=== PATIENT | female | born 1995 | race African-American/Black ===

== ENCOUNTER 2021-06-10 09:56 | Day surgery (SDC) | payer OTHER ==
[~2021-06-10] VITALS: Ht 165.1 cm; Wt 74.5 kg
[~2021-06-10 09:56] MED LIST: BUPIVACAINE-EPI 0.5% 30 ML VIAL KIT. ONE; HYDROmorphone 2 MG/ML VIAL IVP PRN; IV RINGERS,LACTATED 1000ML 1,000 ML IV SCH; PROCHLORPERAZINE 10 MG/2 ML VIAL. IVP PRN; ceFAZolin SODIUM IV Push 1 GM VIAL. IVP PRN; fentaNYL PF VIAL 100 MCG/2 ML VIAL IVP PRN
[2021-06-10 10:32] VITALS: BP 119/66
[2021-06-10] MEDS ORDERED: PROPOFOL 10 MG/ML (20ML) VIAL. IV ONE ×2 (10:45→10:48)
[2021-06-10] MEDS ORDERED: KETOROLAC 30 MG/ML VIAL. ONE (10:46)
[2021-06-10] MEDS ORDERED: LIDOCAINE 2% PF 5 ML VIAL. ONE (10:46)
[2021-06-10] MEDS ORDERED: ROCURONIUM 50 MG/5 ML VIAL. ONE (10:46)
[2021-06-10] MEDS ORDERED: NEOSTIGMINE 10 MG/10 ML VIAL. ONE (10:47)
[2021-06-10] MEDS ORDERED: GLYCOPYRROLATE 1 MG/5 ML VIAL. ONE (10:47)
[2021-06-10] MEDS ORDERED: DEXAMETHASONE SOD PHOS 4 MG/ML VIAL ONE (10:48)
[2021-06-10] MEDS ORDERED: HYDROmorphone 2 MG/ML VIAL ONE (10:48)
[2021-06-10] MEDS ORDERED: MIDAZOLAM HCL/PF 2 MG/2 ML VIAL. ONE (10:54)
[2021-06-10] MEDS ORDERED: BUPIVACAINE-EPI 0.5% 30 ML VIAL KIT. INJ ONE (12:34)
--- NOTE | 2021-06-10 13:37 | PDOC4 ---
Operative Note Operative Note Operative Note: Preoperative Diagnosis: Right inguinal hernia Postoperative Diagnosis: Same Procedure: Right inguinal hernia repair with mesh Surgeon: Eric Tannery Worker: John Rubin MS 4 Anesthesia: General EBL: 10 mL Specimen: None Drains: None Complications: None Indication: The patient is a 25-year-old male who is referred with a right inguinal hernia. He was offered surgical repair. The risks of surgery were discussed which include bleeding, infection, recurrence, pain, anesthetic risk, potential need for additional surgery procedure. He understands and would like to proceed. Description: The patient was taken the operating room and placed supine on the operating table. General anesthesia was performed. The abdomen was prepped with ChloraPrep and draped with sterile towels sheets and an Ioban. An incision was made in the right groin with a scalpel. Cautery dissection was carried down to the external beak aponeurosis. The aponeurosis was opened down to the external ring. The contents of the inguinal canal were digitally mobilized and encircled with a Clemson drain. The inguinal floor appeared relatively intact. There was a small indirect hernia sac present. This was mobilized from the surrounding cord structures which were preserved. The sac was amputated and oversewn with 2-0 Vicryl. The stump was inverted and the defect filled with a medium sized Phasix mesh plug. The plug was sutured in position with 2-0 Vicryl. The inguinal floor was then reinforced with a Prolene keyhole mesh patch. The mesh was sutured with 2-0 Vicryl. The external oblique was closed over the mesh with 2-0 Vicryl. The subcutaneous tissue was approximated 3-0 Vicryl. Skin was closed with 4-0 Monocryl and infiltrated with half percent Marcaine with epinephrine. Steri-Strips and a sterile dressing were applied. The patient tolerated the procedure well and was sent to the recovery room in stable condition. At the end the case all counts were correct. STALIN HERNANDEZ MD Jun 10, 2021 13:37
[2021-06-10] MEDS ORDERED: OXYC-325 PO (13:38)
--- NOTE | 2021-06-10 13:40 | DISCH ---
DISCHARGE INSTRUCTIONS Condition on Discharge Condition on Discharge: Stable Activity After Discharge Activity Instructions for Disc: Other, see below (no lifting over 20 lbs X 4 weeks) Driving Instructions after Dis: Other, see below (no driving while taking pain meds) Wound Incision Care Wound/Incision Care: Other, see below (keep dressing clean and dry X 72 hours, may then remove and shower) Follow-Up Follow up with: Dr Hernandez in 2 weeks in office, call for appointment [phone] STALIN HERNANDEZ MD Jun 10, 2021 13:40
[2021-06-10] MEDS ORDERED: MORPHINE SULFATE 2 MG/ML INJ. ONE (13:50)
[2021-06-10] MEDS: MORPHINE SULFATE 2 MG/ML INJ. IVP PRN ×2 (13:53→14:11)
[2021-06-10] MEDS ORDERED: fentaNYL PF VIAL 100 MCG/2 ML VIAL ONE ×2 (14:09→14:34)
[2021-06-10] MEDS: fentaNYL PF VIAL 100 MCG/2 ML VIAL IVP PRN ×4 (14:12→14:35)
[2021-06-10] MEDS ORDERED: oxyCODONE/APAP 5/325 1 TAB TABLET PO ONE (14:15)
[2021-06-10 14:46] VITALS: BP 129/68
== END 2021-06-10 15:20 | disposition home or self-care (01) ==
LOC: SURG 09:56
PROVIDERS: ATTEND Surgery
DX: K40.90 Unilateral inguinal hernia, without obstruction or gangrene, not specified as recurrent (principal); Z79.899 Other long term (current) drug therapy; Z98.890 Other specified postprocedural states; Z87.891 Personal history of nicotine dependence
CPT/HCPCS: 49505; A4930; C1781; J0690; J1100; J1170; J1885; J2250; J2270; J2704; J2710; J3010; J3490